=== PATIENT | male | born 1975 | race Caucasian/White ===

== ENCOUNTER 2017-06-22 13:32 | Emergency (ER) | payer BC ==
[~2017-06-22] VITALS: Ht 195.6 cm; Wt 113.4 kg
[2017-06-22 13:35] VITALS: BP_SYST 170
--- NOTE | 2017-06-22 13:40 | NUR ---
Patient to ER bed 4 to gown for evaluation. Side rails up.
--- NOTE | 2017-06-22 13:40 | NUR ---
ER at bedside examining patient.
--- NOTE | 2017-06-22 13:42 | NUR ---
Pt presents to ER c/o L chest pain that radiates to shoulder and back. Pt denies N/V/D/SOB. Pt states that chest pain has been ongoing for past 2 days. Pt rates pain 5/10 and describes as dull. Pt denies any significant medical history. Pt in no acute distress, AOX4, NKDA, family at bedside.
--- NOTE | 2017-06-22 13:50 | NUR ---
EKG performed at BS. Physician given copy of EKG for review.
--- NOTE | 2017-06-22 13:55 | NUR ---
Laboratory at bedside for blood draw.
--- NOTE | 2017-06-22 14:00 | NUR ---
Radiology at bedside for xray.
[2017-06-22 14:15] LABS: BASOPHILS # (AUTO) 0.1 K/uL (0.0-0.2); BASOPHILS % (AUTO) 0.6 % (0.0-2.0); CREATININE 1.09 mg/dL (0.55-1.30); EOSINOPHILS # (AUTO) 0.2 K/uL (0.0-0.4); EOSINOPHILS % (AUTO) 2.6 % (0.0-4.0); HEMOGLOBIN 15.2 g/dL (14.0-18.0); LYMPHOCYTES # (AUTO) 2.3 K/uL (1.0-5.5); LYMPHOCYTES % (AUTO) 26.3 % (20.5-51.5); MEAN CORPUSCULAR HEMOGLOBIN 30 pg (27-31); MEAN CORPUSCULAR HGB CONC 32 % (32-36); MEAN CORPUSCULAR VOLUME 92 fL (79.0-98.0); MONOCYTES # (AUTO) 0.9 K/uL (0.0-1.0); MONOCYTES % (AUTO) 10.5 % (1.7-9.3); NEUTROPHILS # (AUTO) 5.2 K/uL (1.8-7.7); PLATELET COUNT (AUTO) 272 K/uL (130-430); POTASSIUM 4.1 mmol/L (3.5-5.1); RED BLOOD CELL COUNT(AUTO) 5.13 MIL/uL (4.2-6.2); RED CELL DISTRIBUTION WIDTH 12.5 % (9.0-15.0); WHITE BLOOD COUNT (AUTO) 8.7 K/uL (4.8-10.8)
[2017-06-22 14:20] LABS: ALBUMIN 4.1 g/dL (3.4-4.8); TOTAL BILIRUBIN 0.5 mg/dL (0.0-1.0)
[2017-06-22 14:25] LABS: PROTHROMBIN TIME 10.5 SECS (9.5-12.5)
--- NOTE | 2017-06-22 14:40 | NUR ---
Dr. Lama at bedside updating pt and family on diagnostic and laboratory results.
--- NOTE | 2017-06-22 15:00 | NUR ---
Patient given written and verbal discharge instructions and verbalizes understanding. ER MD Oseguera discussed with patient the results and treatment provided. Patient in stable condition. ID arm band removed. No Rx given. Patient educated on pain management and to follow up with PMD. Pain Scale 0. Opportunity for questions provided and answered.
[2017-06-22 15:22] VITALS: BP_SYST 153
== END 2017-06-22 15:31 | disposition home or self-care (01) ==
LOC: SED 13:32
DX: R07.89 Other chest pain (principal); R00.2 Palpitations; R42 Dizziness and giddiness; Z90.89 Acquired absence of other organs
CPT/HCPCS: 36415; 71045; 80053; 83880; 84484; 85025; 85610-TC; 85730-TC; 93005; 99285